=== PATIENT | female | born 1970 | race Caucasian/White ===

== ENCOUNTER 2020-03-28 19:15 | Emergency (ER) | payer OTHER ==
[~2020-03-28] VITALS: Ht 162.6 cm; Wt 118.6 kg
--- NOTE | 2020-03-28 20:10 | NUR ---
PT SITTING UP IN [facility] NOTED. PT SENT BY [facility] IN [place] FOR ENT CONSULT. PT REPORTS INCREASING R FACIAL PAIN/SWELLING S/P ROOT CANAL ON MONDAY. PT REPORTS "INTENSE PRESSURE" BEHIND R EYE.+SUBJECTIVE FEVER, CHANGES IN VISION, AND CLEAR NASAL DRAINAGE. DENIES CP/SOB/FRY/N/V/DIFFICULTY SWALLOWING. BP/SPO2 MONITORING IN PLACE. FAMILY MEMBER AT BEDSIDE.
[2020-03-28] MEDS ORDERED: OMNIPAQUE 350 MG/ML, 75ML BOTTLE ONE (21:09)
--- NOTE | 2020-03-28 21:39 | NUR ---
PT SITTING UP IN [facility], CALMLY WATCHING TV. NAD. CHART UP FOR RECHECK
[2020-03-28 23:38] VITALS: BP 175/82
--- NOTE | 2020-03-28 23:55 | NUR ---
DC EDUCATION PROVIDED, PT DEMONSTRATES UNDERSTANDING. PT AMBULATED STEADILY TO NC WITH RN AND FAMILY MEMBER. FAMILY MEMBER TO TRANSPORT PT BACK TO [place].
== END 2020-03-28 23:57 | disposition home or self-care (01) ==
LOC: ED 19:45
DX: L03.213 Periorbital cellulitis (principal); J32.0 Chronic maxillary sinusitis; J32.2 Chronic ethmoidal sinusitis; H53.8 Other visual disturbances; H05.229 Edema of unspecified orbit; E11.9 Type 2 diabetes mellitus without complications; F17.200 Nicotine dependence, unspecified, uncomplicated
CPT/HCPCS: 70487; 99285; Q9967